=== PATIENT | male | born 1960 | race African-American/Black ===

== ENCOUNTER 2019-05-24 07:28 | Emergency (ER) | payer SELFPAY ==
--- NOTE | 2019-05-24 08:01 | UC ---
Abdominal Pain Male HPI - HPI Summary HPI Summary: 58-year-old male comes in with a chief complaint of abdominal pain and back pain. He reports that he's been having abdominal pain and back pain on and off for quite some time however this morning the pain was much more severe. Feels lightheaded when the pain is at its worst. Reports the pain is greater than a 10 out of 10. No fevers. No prior abdominal surgeries. - History of Current Complaint Chief Complaint: UCAbdominalPain Stated Complaint: LOW BACK/ABDOMINAL PAIN Time Seen by Provider: 05/24/19 07:54 Pain Intensity: 10 - Allergies/Home Medications Allergies/Adverse Reactions: Allergies Allergy/AdvReac Type Severity Reaction Status Date / Time No Known Allergies Allergy Verified 05/24/19 07:41 Home Medications: Home Medications NK [No Home Medications Reported] 05/24/19 [History Confirmed 05/24/19] PMH/Surg Hx/FS Hx/Imm Hx Previously Healthy: Yes - Surgical History Surgical History: None - Family History Known Family History: Positive: Non-Contributory - Social History Alcohol Use: Occasionally Substance Use Type: Marijuana Substance Use Comment - Amount & Last Used: OCCASIONAL Smoking Status (MU): Heavy Every Day Tobacco Smoker Type: Cigarettes Amount Used/How Often: 1/2 PPD Household Exposure Type: Cigarettes Review of Systems All Other Systems Reviewed And Are Negative: Yes Constitutional: Positive: Other - SEE HPI Skin: Positive: Negative Eyes: Positive: Negative ENT: Positive: Negative Respiratory: Positive: Negative Cardiovascular: Positive: Negative Gastrointestinal: Positive: Abdominal Pain Genitourinary: Positive: Negative Motor: Positive: Negative Neurovascular: Positive: Negative Musculoskeletal: Positive: Negative Neurological: Positive: Negative Psychological: Positive: Negative Is Patient Immunocompromised?: No Physical Exam Triage Information Reviewed: Yes Appearance: Well-Nourished, Pain Distress - MODERATE/SEVERE Vital Signs: Initial Vital Signs Temp 98.8 F 05/24/19 07:43 Pulse 78 05/24/19 07:43 Resp 16 05/24/19 07:43 BP 116/69 05/24/19 07:43 Pulse Ox 100 05/24/19 07:43 Vital Signs Reviewed: Yes Eye Exam: Normal Eyes: Positive: Conjunctiva Clear Neck: Positive: Supple Respiratory: Positive: Lungs clear, Normal breath sounds, No respiratory distress Cardiovascular: Positive: RRR Abdomen Description: Positive: CVA Tenderness (R), Other: - Tender to palpation right lower quadrant and left lower quadrant and epigastrium. Bowel Sounds: Positive: Hypoactive Musculoskeletal: Positive: Strength Intact, ROM Intact Neurological: Positive: Alert Psychological: Positive: Age Appropriate Behavior Skin Exam: Normal Abd Pain Male Course/Dx - Course Course Of Treatment: I recommended further evaluation and care and emergency Department the patient was transported to the emergency department by ambulance. I discussed the case with the [place] emergency department provider. - Differential Dx/Clinical Impression Provider Diagnosis: Abdominal pain Discharge ED - Sign-Out/Discharge Documenting (check all that apply): Patient Departure All imaging exams completed and their final reports reviewed: No Studies - Discharge Plan Condition: Stable Disposition: TRANS HIGHER LVL OF CARE FAC Referrals: [facility] [Outside] - Billing Disposition and Condition Condition: STABLE Disposition: Trans Higher Lvl of Care Fac
[2019-05-24 08:32] VITALS: BP 110/63
== END 2019-05-24 08:29 | disposition short-term general hospital (02) ==
LOC: UCCORT 07:28
DX: R10.814 Left lower quadrant abdominal tenderness (principal); R10.813 Right lower quadrant abdominal tenderness; R10.816 Epigastric abdominal tenderness; F17.210 Nicotine dependence, cigarettes, uncomplicated
CPT/HCPCS: 99203; G0463